=== PATIENT | male | born 1980 | race African-American/Black ===

== ENCOUNTER 2021-04-11 06:35 | Emergency (ER) | payer SELFPAY ==
[~2021-04-11] VITALS: Ht 175.3 cm; Wt 78.9 kg
--- NOTE | 2021-04-11 07:13 | NUR ---
return checker: pt from lobby to room 18
[2021-04-11] MEDS ORDERED: FAMOTIDINE 20 MG/2 ML IVPush ONE (07:30)
[2021-04-11] MEDS ORDERED: SODIUM CHLORIDE 0.9% 1,000ML IVBOLUS ONE (07:30)
[2021-04-11] MEDS ORDERED: ONDANSETRON 2MG/ML, 2ML IVPush ONE (07:30)
[2021-04-11] MEDS ORDERED: MORPHINE SULFATE 4 MG/ML, 1ML IVPush PRN (07:30)
[2021-04-11] MEDS ORDERED: ONDANSETRON 2MG/ML, 2ML ONE (07:34)
[2021-04-11] MEDS ORDERED: MORPHINE SULFATE 4 MG/ML, 1ML ONE ×2 (07:34→08:31)
[2021-04-11] MEDS ORDERED: FAMOTIDINE 20 MG/2 ML ONE (07:35)
--- NOTE | 2021-04-11 07:50 | NUR ---
PT STATES HAD DIVEHI FOOD LAST NIGHT AT 2100 AND DIDN'T FEEL RIGHT AFTERWARDS. WOKE UP WITH N/V AT 0200 AND HASN'T STOPPED.
[2021-04-11 08:21] LABS: BASOPHILS % (AUTO) 0 % (0-1); EOSINOPHILS % (AUTO) 1 % (1-7); LYMPHOCYTES % (AUTO) 12 % (22-44); MD NO; MEAN CORPUSCULAR HEMOGLOBIN 28.9 pg (27.5-34.5); MEAN CORPUSCULAR HGB CONC 33.5 g/dL (33.2-36.2); MEAN PLATELET VOLUME 9.2 fL (7.4-10.4); MONOCYTES % (AUTO) 3 % (2-9); NEUTROPHILS % (AUTO) 84 % (42-75); PLATELET COUNT 200 x10^3/uL (130-400); RED BLOOD COUNT 5.94 x10^6/uL (4.38-5.82); RED CELL DISTRIBUTION WIDTH 13.3 % (9.4-14.8)
[2021-04-11] MEDS ORDERED: HALOPERIDOL 5 MG/ML IV ONE (08:30)
[2021-04-11 08:31] LABS: ALANINE AMINOTRANSFERASE 38 U/L (12-78); ANION GAP 10 mmol/L (5-15); CALCIUM 9.4 mg/dL (8.5-10.1); CHLORIDE 109 mmol/L (98-107); CREATININE 1.06 mg/dL (0.7-1.3)
[2021-04-11] MEDS ORDERED: HALOPERIDOL 5 MG/ML ONE (08:31)
[2021-04-11 08:33] LABS: ALKALINE PHOSPHATASE 63 U/L (45-117); BILIRUBIN,TOTAL 0.4 mg/dL (0.2-1.0); TOTAL PROTEIN 8.1 g/dL (6.4-8.2)
[2021-04-11] MEDS ORDERED: KETOROLAC 30 MG/1 ML IVPush ONE (09:30)
[2021-04-11] MEDS ORDERED: KETOROLAC 30 MG/1 ML ONE (09:43)
[2021-04-11 10:09] LABS: MICROSCOPIC INDICATED
[2021-04-11 10:53] VITALS: BP 129/86
== END 2021-04-11 10:55 | disposition home or self-care (01) ==
LOC: ED 10:25
DX: R11.2 Nausea with vomiting, unspecified (principal); E86.0 Dehydration; R10.10 Upper abdominal pain, unspecified; K21.9 Gastro-esophageal reflux disease without esophagitis; F17.210 Nicotine dependence, cigarettes, uncomplicated
CPT/HCPCS: 36415; 80053; 81001; 83690; 85025; 96361; 96374; 96375; 99284; J1630; J1885; J2270; J2405; J7030